=== PATIENT | male | born 1975 | race Caucasian/White ===

== ENCOUNTER 2021-04-21 11:55 | Emergency (ER) | payer OTHER, SELFPAY ==
[2021-04-21 12:15] VITALS: BP 165/95; PULSE 86; RESP 17; TEMP 36.8; O2SAT 100
--- NOTE | 2021-04-21 12:21 | ED.UPPEXIN ---
HPI - Extremity Injury (Upper) General Chief Complaint: Upper Respiratory Infection Stated Complaint: Sore throat Source: patient and RN notes reviewed Limitations: no limitations History of Present Illness HPI narrative: The vaccinated patient, a non-smoker/occasional drinker, presents with sore throat. Patient states he has a shorter 1 day history of sore throat; no fever, hoarseness, trismus, cough, earache, SOB, loss of taste/smell, CP. Symptoms are mild associate with mild coarseness in his voice. [id number] testing for strep and Covid antigen is negative Related Data Allergies Allergy/AdvReac Type Severity Reaction Status Date / Time No Known Allergies Verified 04/21/21 12:30 Review of Systems Review of Systems: The patient has been informed that they may have pre-hypertension or Hypertension based on a BP reading in the department. I recommend that the patient call the primary care provider listed on their discharge instructions or a physician of their choice this week to arrange follow up for further evaluation of possible pre-hypertension or Hypertension General/Constitutional: No weight loss,fever Eyes: N0: Redness,discharge Ears/Nose/Throat: No: Epistaxis,ear discharge Respiratory: Denies: Hemoptysis Gastrointestinal: No Vomiting, Bleeding-rectal Skin: No Lumps, eruption Neurologic: No Focal Weakness,Sz Hematologic: Denies: Petechiae/Purpura Psychiatric: No: Suicida ideationl All Other Systems: Reviewed and Negative [facility] Social History Social History Gender identity (if verbalized by the patient): Male Comments At time of signature, agree with nursing past medical, surgical, social and family history. There is no relevant family history pertinent to the presenting complaint Exam Narrative: General Appearance: Well appearing, , Conjunctiva clear Ears: Auditory canal normal, TM normal Nose: Rhinorrhea, Mucousal erythema Mouth/Throat: MM moist, Uvula midline, Pharyngeal erythema , Supple, No adenopathy Respiratory: No respiratory distress, Breath sounds equal, Clear to auscultation Cardiovascular: RRR, No JVD Musculoskeletal: Non tender, Normal strength Skin: Warm, Dry Neurological: A&O x3, Normal affect Course Vital Signs Vital signs: Vital Signs Temperature 98.3 F 04/21/21 12:15 Pulse Rate 86 04/21/21 12:15 Respiratory Rate 17 04/21/21 12:15 Blood Pressure 165/95 H 04/21/21 12:15 Pulse Oximetry 100 08/28/21 12:15 Temperature 98.3 F 04/21/21 12:15 Pulse Rate 86 04/21/21 12:15 Respiratory Rate 17 04/21/21 12:15 Blood Pressure 165/95 H 04/21/21 12:15 Pulse Oximetry 100 04/21/21 12:15 MDM - Extremity Injury (Upper) Lab Data Labs: Strep Screen Presumptive Negative *(Reference Range: Negative)* Discharge Plan Discharge Clinical Impression: Acute sore throat Patient Disposition: Home, Self-Care Condition: Stable Instructions: Antibiotic Form, Pharyngitis (ED) Prescriptions: New azithromycin 250 mg tablet See Rx Instructions .ROUTE .COMPLEX Qty: 6 RF: 0 lidocaine HCl [Lidocaine Viscous] 2 % solution 5 ml MUCOUS MEM QID PRN (Reason: pain) Qty: 100 RF: 0 Other Ambulatory Orders: SARS-CoV-2 RNA, Qual RT-PCR (Routine) Location: Determined by Patient Ordered By: Edin Galvez Follow-up/Referrals: Sunday Schmitz MD [Primary Care Provider] -
--- NOTE | 2021-04-21 13:29 | ED.URI ---
HPI - URI/Sore Throat General Chief Complaint: Upper Respiratory Infection Stated Complaint: Sore throat Source: patient and RN notes reviewed Limitations: no limitations History of Present Illness HPI Narrative: The vaccinated patient, a drinker/non-smoker, presents with sore throat. Patient states that he has a shorter 1 day history of sore throat with mild frogginess. No fever, significant hoarseness, trismus, CP, loss of taste/smell, S OB, vomiting/diarrhea, rash. Symptoms are mild worse with eating Related Data Allergies Allergy/AdvReac Type Severity Reaction Status Date / Time No Known Allergies Verified 04/21/21 12:30 Review of Systems Review of Systems: The patient has been informed that they may have pre-hypertension or Hypertension based on a BP reading in the department. I recommend that the patient call the primary care provider listed on their discharge instructions or a physician of their choice this week to arrange follow up for further evaluation of possible pre-hypertension or Hypertension General/Constitutional: No weight loss,fever Eyes: N0: Redness,discharge Ears/Nose/Throat: No: Epistaxis,ear discharge Respiratory: Denies: Hemoptysis Gastrointestinal: No Vomiting, Bleeding-rectal Skin: No Lumps, eruption Neurologic: No Focal Weakness,Sz Hematologic: Denies: Petechiae/Purpura Psychiatric: No: Suicida ideationl All Other Systems: Reviewed and Negative [facility] Social History Social History Gender identity (if verbalized by the patient): Male Comments At time of signature, agree with nursing past medical, surgical, social and family history. There is no relevant family history pertinent to the presenting complaint Exam Narrative: General Appearance: Well appearing, Conjunctiva clear Ears: Auditory canal normal, TM normal Nose: Rhinorrhea, Mucousal erythema Mouth/Throat: MM moist, Uvula midline, Pharyngeal erythema Neck: Supple, No adenopathy Respiratory: No respiratory distress, Breath sounds equal, Clear to auscultation Cardiovascular: RRR, No JVD Musculoskeletal: Non tender, Normal strength Skin: Warm, Dry Neurological: A&O x3, Normal affect Course Vital Signs Vital signs: Vital Signs Temperature 98.3 F 04/21/21 12:15 Pulse Rate 86 04/21/21 12:15 Respiratory Rate 17 04/21/21 12:15 Blood Pressure 165/95 H 04/21/21 12:15 Pulse Oximetry 100 04/21/21 12:15 Temperature 98.3 F 04/21/21 12:15 Pulse Rate 86 04/21/21 12:15 Respiratory Rate 17 04/21/21 12:15 Blood Pressure 165/95 H 04/21/21 12:15 Pulse Oximetry 100 04/21/21 12:15 MDM - URI/Sore Throat Lab Data Labs: Strep Screen Presumptive Negative *(Reference Range: Negative)* Discharge Plan Discharge Clinical Impression: Acute sore throat Patient Disposition: Home, Self-Care Condition: Stable Instructions: Antibiotic Form, Pharyngitis (ED) Prescriptions: New azithromycin 250 mg tablet See Rx Instructions .ROUTE .COMPLEX Qty: 6 RF: 0 lidocaine HCl [Lidocaine Viscous] 2 % solution 5 ml MUCOUS MEM QID PRN (Reason: pain) Qty: 100 RF: 0 Other Ambulatory Orders: SARS-CoV-2 RNA, Qual RT-PCR (Routine) Location: Determined by Patient Ordered By: Edin Galvez Follow-up/Referrals: Sunday Schmitz MD [Primary Care Provider] -
== END 2021-04-21 13:00 | disposition home or self-care (01) ==
PROVIDERS: Emergency Provider Emergency Medicine; PCP Family Medicine
DX: J02.9 Acute pharyngitis, unspecified (principal); Z20.822 Contact with and (suspected) exposure to COVID-19; E89.0 Postprocedural hypothyroidism
CPT/HCPCS: 87081; 87426; 87880; 99213; C9803; G0463

== ENCOUNTER → 2023-05-28 14:07 | Outpatient (CLI) | payer BC, SELFPAY ==
--- NOTE | ~2023-05-28 | CT_ITS ---
EXAMINATION: CT abdomen pelvis w con DATE: 05/28/2023 14:29 INDICATION: Left upper quadrant abdominal pain, discomfort, swelling TECHNIQUE: Computed tomography (CT) of the abdomen and pelvis was performed with 100 CC Omnipaque 350 intravenous contrast. Automated exposure control and iterative reconstruction technique were employe d. Exam dose: 522.31 mGy-cm total exam DLP. COMPARISON: None. FINDINGS: The lung bases are clear. Normal heart size. No pericardial or pleural effusion. Very small sliding hiatal hernia. Diffuse hepatic steatosis. No hepatic space-occupying mass lesion. The gallbladder appears normal. No bile duct or pancreatic duct dilatation. No pancreatic mass lesion or calcification. Normal splenic size. Normal morphology of the adrenal glands. No renal mass lesion or urinary tract calculus or hydroureteronephrosis. Normal caliber of the abdominal aorta. No intraperitoneal or retroperitoneal or pelvic mass lesion or adenopathy or ascites. The urinary bladder and prostate gland and seminal vesicles are unremarkable. Fat-containing left inguinal hernia. Small fat-containing umbilical hernia. Normal appendix. Diverticulosis of the colon; no CT evidence of diverticulitis. No bowel obstruction, bowel wall thickening, pneumatosis or intraperitoneal free air is detected. Included skeletal structures are unremarkable. IMPRESSION: Very small sliding hiatal hernia Hepatic steatosis Fat-containing left inguinal hernia and small fat-containing umbilical hernia Normal appendix Diverticulosis of the colon; no evidence of diverticulitis Reviewed, dictated and finalized at [facility]. Reviewed, dictated and finalized at [facility].
== END ==
PROVIDERS: PCP Family Medicine; Visit Provider Family Medicine
DX: R19.02 Left upper quadrant abdominal swelling, mass and lump (principal); R10.9 Unspecified abdominal pain; K57.30 Diverticulosis of large intestine without perforation or abscess without bleeding; K76.0 Fatty (change of) liver, not elsewhere classified; K44.9 Diaphragmatic hernia without obstruction or gangrene; K42.9 Umbilical hernia without obstruction or gangrene
CPT/HCPCS: 74177; Q9967

== ENCOUNTER 2023-06-11 01:39 | Day surgery (SDC) | payer BC, SELFPAY ==
[2023-06-03 15:00] VITALS: BMI 25.7
--- NOTE | 2023-06-10 16:52 | PM.HPGS ---
History of Present Illness History of Present Illness Consent: Risks, benefits, and alternatives have been discussed and questions answered. Patient agrees to proceed with procedure. Chief complaint: GERD,Neoplasm screening, Screening of Rectum Narrative: Helder Jackson is a 47 year old male With heartburn and cramping in his abdomen after meals. he has had chronic problems with acid reflux. he takes Tums frequently He often wakes up at night with acid in his throat. He denies dysphagia. Denies weight loss. He is taking esomeprazole 20 mg p.r.n. A to started taking it last week He is also due for colon cancer screening. Review of Systems Review of Systems: All systems reviewed & are unremarkable except as noted in HPI and below PMFSH Past Medical History Medical History GERD (gastroesophageal reflux disease) Surgical History Surgical History History of thyroid surgery History of umbilical hernia repair as a child Family History Family History Father Hypertension Heart disease Mother Hypertension Cerebrovascular accident Social History Social History Smoking status: Current every day smoker Tobacco type: smokeless tobacco Smokeless tobacco user: chewing tobacco Alcohol intake: current Drinks per week: 4 Substance use: never Substance use type: does not use Living arrangements: with family Occupation/Education: occupation Gender identity (if verbalized by the patient): Male Sexual Orientation (if Verbalized by the Patient): Straight or Heterosexual Spiritual care concerns: No Meds Home Medications and Allergies Home Medications Medication Instructions Recorded Confirmed Type esomeprazole magnesium 20 mg 20 mg PO DAILY PRN Indigestion 05/22/23 06/03/23 History capsule,delayed release lisinopril 10 mg tablet 10 mg PO DAILY #30 tabs 05/30/23 06/03/23 Rx Allergies Allergy/AdvReac Type Severity Reaction Status Date / Time No Known Allergies Allergy Verified 06/11/23 11:47 Exam Const: General: alert Orientation/consciousness: patient oriented x3 Resp: Auscultation: clear to auscultation bilaterally Cardio: Rhythm: regular rhythm GI: GI Palp: Yes Soft to palpation and No Tenderness to palpation present (GI) Neuro: General: patient oriented x3 Assessment and Plan Assessment and plan (1) GERD (gastroesophageal reflux disease): Code(s): K21.9 - Gastro-esophageal reflux disease without esophagitis Status: Acute Assessment and Plan: EGD with possible biopsy or dilatation or cautery. (2) Colon cancer screening: Code(s): Z12.11 - Encounter for screening for malignant neoplasm of colon Status: Acute Assessment and Plan: Colonoscopy with possible biopsy or polypectomy or cautery or injection of substances.
[2023-06-11 11:49] VITALS: BP 136/92; PULSE 104; RESP 18; TEMP 36.5; O2SAT 100
[2023-06-11] MEDS: LACTATED RINGERS 1,000 ML 150 ML IV CONT (11:56)
[2023-06-11] MEDS: BENZOCAINE (*SP) 60 ML SPRAY CAN (HURRICAINE) 1 SPRAY MUCOUS MEM (12:06)
--- NOTE | 2023-06-11 12:06 | P.PNAN_ITS ---
Anes - Initial Pre Proc Eval Procedure: Operation Date: 06/11/23 13:00 Proposed Procedures p Esophagogastroduodenoscopy & Screening Colonoscopy - Lee Kaufman MD Date/Time: 06/11/23 12:06 Surgeon: Lee Kaufman MD Pre Op Diagnosis: GERD,Neoplasm screening, Screening of Rectum Patient Data Age: 47 Gender: M Height: 1.8 m Weight: 79 kg Last Vital Signs Temp 97.7 F 06/11/23 11:49 Pulse 104 H 06/11/23 11:49 Resp 18 06/11/23 11:49 BP 136/92 H 06/11/23 11:49 Pulse Ox 100 06/11/23 11:49 O2 Del Method Room Air 06/11/23 11:49 Allergies Allergy/AdvReac Type Severity Reaction Status Date / Time No Known Allergies Allergy Verified 06/11/23 11:47 Home Medications Medication Instructions Recorded Confirmed Type esomeprazole magnesium 20 mg 20 mg PO DAILY PRN Indigestion 05/22/23 06/03/23 H istory capsule,delayed release lisinopril 10 mg tablet 10 mg PO DAILY #30 tabs 05/30/23 06/03/23 Rx Patient hx anesthesia problems: none Family hx anesthesia problems: none Results Review: All pre-operative results and documents have been reviewed as part of the pre- operative evaluation. COUNT INCLUDES THE [facility] Past Medical History Medical History GERD (gastroesophageal reflux disease) Surgical History Surgical History History of thyroid surgery History of umbilical hernia repair as a child Family History Family History Father Hypertension Heart disease Mother Hypertension Cerebrovascular accident Social History Social History Smoking status: Current every day smoker Tobacco type: smokeless tobacco Smokeless tobacco user: chewing tobacco Alcohol intake: current Drinks per week: 4 Substance use: never Substance use type: does not use Living arrangements: with family Occupation/Education: occupation Gender identity (if verbalized by the patient): Male Sexual Orientation (if Verbalized by the Patient): Straight or Heterosexual Spiritual care concerns: No Anes - Eval Final PreProcedure Day of Procedure 06/11/23 12:06 Patient weight: normal Heart: regular rate and rhythm Lungs: clear to auscultation Airway: Mallampati scale class II Neurological: alert and oriented Last oral intake: >/= 8 hours ASA classification: II Emergent: no Anesthetic plan: proceed Anesthesia type and monitoring: general GIVS and standard monitoring Results Review: All pre-operative results and documents have been reviewed as part of the pre- operative evaluation. Informed Consent: The patient's anesthetic plan and its attendant risks and benefits were discussed with the patient/family/POA. Questions were solicited and answers provided to the satisfaction of the patient/family/POA.
--- NOTE | 2023-06-11 12:18 | SUR.OPER ---
EGD end 1212 COLONOSCOPY START 1219
[2023-06-11 12:35] VITALS: BP 91/56; PULSE 92; RESP 20; O2SAT 98
[2023-06-11 12:45] VITALS: BP 94/62; PULSE 86; RESP 18; O2SAT 100
[2023-06-11 12:55] VITALS: BP 108/74; PULSE 80; RESP 17; O2SAT 100
== END 2023-06-11 13:10 | disposition home or self-care (01) ==
PROVIDERS: PCP Family Medicine; Visit Provider Internal Medicine Gastroenterology
PROC: 0DJ08ZZ Inspection of Upper Intestinal Tract, Via Natural or Artificial Opening Endoscopic (ICD-10-PCS; CPT 43235; principal; 2023-06-11 13:00)
DX: Z12.11 Encounter for screening for malignant neoplasm of colon (principal); C20 Malignant neoplasm of rectum; K21.9 Gastro-esophageal reflux disease without esophagitis; F17.220 Nicotine dependence, chewing tobacco, uncomplicated
CPT/HCPCS: 45381; 45380; 43239; 87081; 88305; J2704; J7120